=== PATIENT | female | born 1990 | race Caucasian/White ===

== ENCOUNTER 2023-10-24 10:10 | Inpatient (IN) | payer OTHER ==
[2023-10-24] MEDS: ELECTROLYTE-148 SOLN 500 ML IV ONE (10:30)
[2023-10-24 11:07] VITALS: BMI 31.4
[2023-10-24] MEDS: CITRIC ACID/SODIUM CITRATE 30 ML UNIT-DOSE CUP PO ONE (12:06)
[2023-10-24] MEDS: ELECTROLYTE-148 SOLN 1,000 ML IV SCH (12:06)
[2023-10-24] MEDS ORDERED: OXYTOCIN 10 UNITS/ML VIAL ONE (13:29)
[2023-10-24] MEDS ORDERED: PHENYLEPHRINE HCL 10 MG/1 ML SINGLE DOSE VIAL ONE (13:29)
[2023-10-24] MEDS ORDERED: morphine SULFATE/PF 1 MG/2 ML (2cc Syringe - QUVA) ONE (13:29)
[2023-10-24] MEDS ORDERED: ONDANSETRON 4 MG/2 ML VIAL ONE (13:29)
[2023-10-24] MEDS ORDERED: ceFAZolin SODIUM 1 GM VIAL ONE (13:29)
[2023-10-24] MEDS ORDERED: FENTANYL CITRATE/PF 50 MCG/ML VIAL ONE (13:29)
[2023-10-24] MEDS ORDERED: ELECTROLYTE-148 SOLN 1,000 ML IV SCH (13:45)
[2023-10-24] MEDS: OXYTOCIN 20 UNITS in 0.9% NS 20 UNIT/1,000 ML INFUS.BAG IV SCH (15:05)
[2023-10-24] MEDS ORDERED: IBUPROFEN 800 MG/8 ML IJ IVPB PRN (15:11)
[2023-10-24] MEDS ORDERED: OXYTOCIN 20 UNITS in 0.9% NS 20 UNIT/1,000 ML INFUS.BAG IV ONE (15:21)
[2023-10-24] MEDS: METHYLERGONOVINE MALEATE 0.2 MG/1 ML AMP IM SCH (15:36)
[2023-10-24] MEDS: FERROUS SO4 325 MG TABLET (FP) PO SCH (18:39)
[2023-10-24] MEDS: SIMETHICONE 80 MG TAB.CHEW (FP) PO PRN (22:53)
[2023-10-24] MEDS: ACETAMINOPHEN 1000 MG/100 ML BAG IVPB PRN (22:53)
[2023-10-25] MEDS ORDERED: oxyCODONE HCL 5 MG TABLET PO PRN ×2 (03:11)
[2023-10-25 07:04] LABS: BASO % 0.2 % (0-2.0); EOS % 0.2 % (0-4.5); HEMATOCRIT 31.4 % (32.4-45.2); LYMPH % 12.2 % (8-40); MCH 30.6 pg (25.7-33.7); MEAN CELL VOLUME 87.3 fl (80-96); MONO % 6.3 % (3.8-10.2); NEUT % 81.1 % (42.8-82.8); PLATELET COUNT 186 10^3/uL (134-434); WHITE BLOOD COUNT 14.8 K/mm3 (4.0-10.0)
[2023-10-25] MEDS: IBUPROFEN 600 MG TABLET (FP) PO PRN (10:17)
[2023-10-25] MEDS: PRENATAL VITAMINS W/ FOLIC ACID TABLET (FP) PO SCH (10:18)
[2023-10-25] MEDS: ACETAMINOPHEN 325 MG TABLET (FP) PO PRN (14:50)
[2023-10-25] MEDS ORDERED: BISACODYL 10 MG SUPP.RECT RC PRN (15:11)
[2023-10-25] MEDS: SENNOSIDES/DOCUSATE COMBO (SENNA PLUS) TABLET (UD) PO PRN (19:36)
[2023-10-27 10:23] VITALS: BP 119/73; PULSE 62; RESP 18; TEMP 98.6
== END 2023-10-27 11:15 | disposition home or self-care (01) | DRG 540 ==
LOC: JLDR 10:10 → J3W 17:30
PROVIDERS: ADMIT Obstetrics & Gynecology; ATTEND Obstetrics & Gynecology
PROC: 10D00Z1 Extraction of Products of Conception, Low, Open Approach (ICD-10-PCS; principal; 2023-10-24)
DX: O44.03 Complete placenta previa NOS or without hemorrhage, third trimester (principal); Z3A.38 38 weeks gestation of pregnancy; Z37.0 Single live birth
CPT/HCPCS: 36415; 36430; 80053; 85025; 85610; 85730; 86780; 86803; 86850; 86900; 86901; 86922; 87389; 88307-TC; 94010; J0131